=== PATIENT | female | born 1990 | race African-American/Black ===

== ENCOUNTER 2017-08-28 08:35 | Emergency (ER) | payer OTHER ==
[~2017-08-28] VITALS: Ht 160 cm; Wt 140.0 kg
[~2017-08-28 08:35] MED LIST: PERC5TAB12 PO; RANI150 PO
[2017-08-28 08:38] VITALS: BP 129/77; PULSE 88; RESP 22; TEMP 98.2; O2SAT 100
[2017-08-28] MEDS ORDERED: VENTAER INH (08:50)
[2017-08-28] MEDS ORDERED: FLUT1INH3 INH (08:50)
[2017-08-28] MEDS ORDERED: SERT25TA83 PO (08:50)
[2017-08-28] MEDS ORDERED: HYDR25TA5 PO (08:50)
[2017-08-28] MEDS ORDERED: MONT10TA4 PO (08:50)
[2017-08-28 08:52] VITALS: BP_SYST 130; BP_DIAS 80; BP_DIAS 88; PULSE 85; PULSE 89; RESP 26; O2SAT 100
[2017-08-28] MEDS ORDERED: KETOROLAC TROMETHAMINE 30 MG/ML (IVP) VIAL IV PUSH ONE (09:00)
[2017-08-28] MEDS ORDERED: SODIUM CHLORID 0.9% 500 ML INJ 500 ML IV ONE (09:00)
--- NOTE | 2017-08-28 09:00 | PD ---
HPI Chief Complaint: Chest Pain Time Seen by Provider: 08:46 Travel History International Travel<30 days: No Contact w/Intl Traveler<30days: No Traveled to known affect area: No History of Present Illness HPI The patient complains of sharp chest pain over left pectoralis that does not radiate with [acute onset since this morning when she was awakened by it] onset [3 hours] prior to arrival. It is not accompanied by [fever cough, cough, abdominal pain, back pain, nausea, vomiting, diarrhea-] . There is been no [alleviating factors-] . The pain has been [aggravated by movement and deep breath-] . There have been [-no] similar episodes in the past. Allergies: NKDA Past medical history: Significant for hypertension Past surgical history: Denies PFSH Past Medical History Asthma: Yes Depression: Yes Cardiovascular Problems: Yes Diminished Hearing: No Gastrointestinal Disorders: Yes (IBS) Hypertension: Yes Immunizations Current: Yes Tetanus Vaccination: Unknown Influenza Vaccination: No ?: Not LMP: 07/30/17 : 0 Para: 0 Miscarriage: 0 : 0 Past Surgical History Surgical History: No Previous Surgery Social History Alcohol Use: Yes (WEEKLY) Tobacco Use: No Substance Use: No Allergies-Medications (Allergen,Severity, Reaction): Coded Allergies: No Known Allergies (Unverified Adverse Reaction, Unknown, 08/28/17) Reported Meds & Prescriptions Reported Meds & Active Scripts Active Reported Ventolin Hfa 18 GM Inh (Albuterol Sulfate) 90 Mcg/Act Aer 2 Puff INH Q6H PRN Arnuity Ellipta (Fluticasone Furoate (Inhalatio) 100 Mcg Inh 1 Puff INH DAILY Montelukast (Montelukast Sodium) 10 Mg Tab 10 Mg PO HS Sertraline (Sertraline HCl) 25 Mg Tab 25 Mg PO DAILY Hydrochlorothiazide 25 Mg Tab 25 Mg PO DAILY Review of Systems Except as stated in HPI: all other systems reviewed are Neg General / Constitutional: No: Fever Eyes: No: Visual changes HENT: No: Headaches Cardiovascular: Positive: Chest Pain or Discomfort Respiratory: No: Shortness of Breath Gastrointestinal: No: Abdominal Pain Genitourinary: No: Dysuria Musculoskeletal: No: Pain Skin: No Rash Neurologic: No: Weakness Psychiatric: No: Depression Endocrine: No: Polydipsia Hematologic/Lymphatic: No: Easy Bruising Physical Exam Narrative GENERAL: SKIN: Warm and dry. HEAD: Atraumatic. Normocephalic. EYES: Pupils equal and round. No scleral icterus. No injection or drainage. ENT: No nasal bleeding or discharge. Mucous membranes pink and moist. NECK: Trachea midline. No JVD. CARDIOVASCULAR: Regular rate and rhythm. RESPIRATORY: No accessory muscle use. Clear to auscultation. Breath sounds equal bilaterally. but reproducible chest wall pain over left pectoralis GASTROINTESTINAL: Abdomen soft, non-tender, nondistended. MUSCULOSKELETAL: Extremities without clubbing, cyanosis, or edema. No obvious deformities. NEUROLOGICAL: Awake and alert. No obvious cranial nerve deficits. Motor grossly within normal limits. Five out of 5 muscle strength in the arms and legs. Normal speech. PSYCHIATRIC: Appropriate mood and affect; insight and judgment normal. Data Data Last Documented VS Vital Signs Date Time Temp Pulse Resp B/P (MAP) Pulse Ox O2 Delivery O2 Flow Rate FiO2 08/28/17 10:41 83 23 141/92 (108) 100 Nasal Cannula 2.00 08/28/17 08:38 98.2 Orders Orders Electrocardiogram (08/28/17 09:00) Complete Blood Count With Diff (08/28/17:00) Comprehensive Metabolic Panel (08/28/17:00) Prothrombin Time / Inr (Pt) (08/28/17:00) Act Partial Throm Time (Ptt) (08/28/17:00) Troponin I (08/28/17:00) Lipase (08/28/17 09:00) Chest, Single Ap (08/28/17:00) Ecg Monitoring (08/28/17:00) Bilateral Bp Monitoring (08/28/17:00) Iv Access Insert/Monitor (08/28/17:00) Oximetry (08/28/17 09:00) Oxygen Administration (08/28/17 09:00) Sodium Chlorid 0.9% 500 Ml Inj (Ns 500 M (08/28/17 09:00) Ct Pulmonary Angiogram (08/28/17 09:00) Ketorolac Inj (Toradol Inj) (08/28/17 09:00) Ed Urine Pregnancytest Poc (08/28/17 09:00) Drug Screen, Random Urine (08/28/17 09:00) Iohexol 350 Inj (Omnipaque 350 Inj) (08/28/17 12:29) Labs Laboratory Tests Test 08/28/17 09:05 08/28/17 10:30 08/28/17 10:40 White Blood Count 6.6 TH/MM3 Red Blood Count 5.41 MIL/MM3 Hemoglobin 12.1 GM/DL Hematocrit 37.5 % Mean Corpuscular Volume 69.4 FL Mean Corpuscular Hemoglobin 22.3 PG Mean Corpuscular Hemoglobin Concent 32.2 % Red Cell Distribution Width 14.3 % Platelet Count 270 TH/MM3 Mean Platelet Volume 8.8 FL Neutrophils (%) (Auto) 43.9 % Lymphocytes (%) (Auto) 45.2 % Monocytes (%) (Auto) 8.1 % Eosinophils (%) (Auto) 2.3 % Basophils (%) (Auto) 0.5 % Neutrophils # (Auto) 2.9 TH/MM3 Lymphocytes # (Auto) 3.0 TH/MM3 Monocytes # (Auto) 0.5 TH/MM3 Eosinophils # (Auto) 0.2 TH/MM3 Basophils # (Auto) 0.0 TH/MM3 CBC Comment DIFF FINAL Differential Comment Prothrombin Time 10.1 SEC Prothromb Time International Ratio 1.0 RATIO Activated Partial Thromboplast Time 25.0 SEC Blood Urea Nitrogen 13 MG/DL Creatinine 0.97 MG/DL Random Glucose 99 MG/DL Total Protein 8.4 GM/DL Albumin 3.9 GM/DL Calcium Level 9.3 MG/DL Alkaline Phosphatase 50 U/L Aspartate Amino Transf (AST/SGOT) 16 U/L Alanine Aminotransferase (ALT/SGPT) 20 U/L Total Bilirubin 0.3 MG/DL Sodium Level 137 MEQ/L Potassium Level 4.1 MEQ/L Chloride Level 101 MEQ/L Carbon Dioxide Level 27.9 MEQ/L Anion Gap 8 MEQ/L Estimat Glomerular Filtration Rate 85 ML/MIN Troponin I LESS THAN 0.02 NG/ML Lipase 105 U/L Urine Opiates Screen NEG Urine Barbiturates Screen NEG Urine Amphetamines Screen NEG Urine Benzodiazepines Screen NEG Urine Cocaine Screen NEG Urine Cannabinoids Screen NEG MDM Medical Decision Making Medical Screen Exam Complete: Yes Emergency Medical Condition: Yes Medical Record Reviewed: Yes Interpretation(s) EKG normal sinus rhythm 98 normal intervals no STEMI type of pattern. Pulse ox: Excellent Pleth wave, 96% on room air which is normal Differential Diagnosis Chest wall pain versus pneumonia versus pneumothorax versus pulmonary embolus Narrative Course NEG TOX SCREEN, NEG TROPONIN, NORMAL ELECTROLYTES, NORMAL LIVER/KIDNEY FUNCTIONS. PATIENT HAD A CT THAT READ FOLLOWS BY RADIOLOGIST: CONCLUSION: 1. There is poor opacification of the pulmonary arteries. Questionable filling defects are seen bilaterally in the central pulmonary arteries but it is difficult to be confident of these are true PEs. Consider either attempt at reinjection of contrast to obtain a better study or consider correlation with VQ scan. 2. Soft tissue mass anterior mediastinum measuring up to 2 cm. It is not optimally visualize given the artifact from the adjacent contrast in the left brachiocephalic vein. This could represent residual thymic tissue or an anterior mediastinal mass such as thymoma or lymphadenopathy. Suggest correlating with any prior imaging studies. If none are available suggest followup on an outpatient elective basis with chest CT with IV contrast to assess for change. SINCE PATIENT CANNOT BE GIVEN CONTRAST WITHIN 24 HOURS WILL HAVE TO REPEAT CT CHEST OUTPATIENT Diagnosis Primary Impression: CHEST PAIN WITH POSSIBLE MEDIASTINAL MASS Patient Instructions: Chest Pain (ED), General Instructions Additional Instructions: UNFORTUNATELY YOUR CAT SCAN OF CHEST WAS NOT OF SUFFICIENT QUALITY. PATIENT WILL BE REFERRED TO OUTPATIENT CT WITH IV TO FURTHER EVALUATE MEDIASTINAL MASS AND OR IF FILLING DEFECTS ARE REAL VERSUS SUBSTANDARD STUDY. Scripts Tramadol (Ultram) 50 Mg Tab 50 MG PO Q4H Y for PAIN, #14 TAB 0 Refills Prov: Jagdish Freeman MD 08/28/17 Disposition: 01 DISCHARGE HOME Condition: Stable Jagdish Freeman MD Aug 28, 2017 09:00
[2017-08-28 09:22] VITALS: BP 127/73; PULSE 84; RESP 20; O2SAT 100
--- NOTE | 2017-08-28 09:30 | RADRPT ---
EXAM DATE/TIME: 08/28/2017 09:11 [facility] COMPARISON: No previous studies available for comparison. INDICATIONS : Chest pain. MEDICAL HISTORY : high blood pressure. SURGICAL HISTORY : None. ENCOUNTER: Initial ACUITY: 1 day PAIN SCORE: 10/10 LOCATION: Bilateral chest FINDINGS: A single view of the chest demonstrates the lungs to be symmetrically aerated without evidence of mas s, infiltrate or effusion. The cardiomediastinal contours are unremarkable. Osseous structures are intact. CONCLUSION: 1. No acute cardiopulmonary disease. Samir Garvey MD on August 28, 2017 at 9:27 Board Certified Radiologist. This report was verified electronically.
[2017-08-28 10:03] LABS: AUTOMATED NEUTROPHIL # 2.9 TH/MM3 (1.8-7.7); BASOPHIL % 0.5 % (0.0-2.0); EOSINOPHIL # 0.2 TH/MM3 (0-0.4); EOSINOPHIL % 2.3 % (0.0-4.0); HEMATOCRIT 37.5 % (35.0-46.0); HEMOGLOBIN 12.1 GM/DL (11.6-15.3); LYMPH % 45.2 % (9.0-44.0); MEAN CELL VOLUME 69.4 FL (80.0-100.0); MEAN CORPUSCULAR HEMOGLOBIN 22.3 PG (27.0-34.0); MEAN CORPUSCULAR HGB CONC 32.2 % (32.0-36.0); MEAN PLATELET VOLUME 8.8 FL (7.0-11.0); MONO % 8.1 % (0.0-8.0); MONOCYTE # 0.5 TH/MM3 (0-0.9); NEUT % 43.9 % (16.0-70.0); PLATELET COUNT 270 TH/MM3 (150-450); RED BLOOD COUNT 5.41 MIL/MM3 (4.00-5.30); RED CELL DISTRIBUTION WIDTH 14.3 % (11.6-17.2); WHITE BLOOD COUNT 6.6 TH/MM3 (4.0-11.0)
[2017-08-28 10:41] VITALS: BP 141/92; PULSE 83; RESP 23; O2SAT 100
[2017-08-28 11:11] LABS: PROTHROMBIN TIME - PATIENT 10.1 SEC (9.8-11.6)
[2017-08-28 11:16] LABS: ALBUMIN 3.9 GM/DL (3.4-5.0); AST (GOT) 16 U/L (15-37); BICARBONATE 27.9 MEQ/L (21.0-32.0); BLOOD UREA NITROGEN 13 MG/DL (7-18); CALCIUM 9.3 MG/DL (8.5-10.1); CHLORIDE 101 MEQ/L (98-107); CREATININE 0.97 MG/DL (0.50-1.00); GLOMERULAR FILTRATION RATE 85 ML/MIN (>89); GLUCOSE,RANDOM 99 MG/DL (74-106); SODIUM (NA) 137 MEQ/L (136-145)
[2017-08-28 11:23] LABS: ALKALINE PHOSPHATASE 50 U/L (45-117); ALT (GPT) 20 U/L (10-53); TOTAL BILIRUBIN ADULT 0.3 MG/DL (0.2-1.0); TOTAL PROTEIN 8.4 GM/DL (6.4-8.2); TROPONIN I LESS THAN 0.02 NG/ML (0.02-0.05)
[2017-08-28 12:00] VITALS: BP 132/68; PULSE 68; RESP 25; O2SAT 100
[2017-08-28] MEDS ORDERED: IOHEXOL 350 MG/ML 10 ML VIAL (for RAD DIAG) IVCONTRAST ONE (12:29)
--- NOTE | 2017-08-28 12:51 | RADRPT ---
EXAM DATE/TIME: 08/28/2017 12:26 [facility] COMPARISON: No previous studies available for comparison. INDICATIONS : SOB, Left chest pain, Evaluate for PE. IV CONTRAST: 84 cc Omnipaque 350 (iohexol) IV RADIATION DOSE: 22.90 CTDIvol (mGy) MEDICAL HISTORY : Hypertension. Asthma SURGICAL HISTORY : None listed. ENCOUNTER: Initial ACUITY: 1 day PAIN SCALE: 7/10 LOCATION: Left chest TECHNIQUE: Volumetric scanning of the chest was performed using a pulmonary embolism protocol MIP images were re constructed. Using automated exposure control and adjustment of the mA and/or kV according to patien t size, radiation dose was kept as low as reasonably achievable to obtain optimal diagnostic quality images. DICOM format image data is available electronically for review and comparison. Follow-up recommendations for detected pulmonary nodules are based at a minimum on nodule size and pa tient risk factors according to Fleischner Society Guidelines. FINDINGS: PULMONARY ARTERIES: There is poor opacification of the pulmonary arteries. There are questionable filling defects in the central right lower lobe lobar pulmonary artery and left lower lobe lobar pulmonary artery. LUNGS: There is no consolidation or pneumothorax . No concerning pulmonary nodule is visualized. PLEURAE: There is no pleural thickening or pleural effusion. MEDIASTINUM: Heart and great vessels demonstrate no abnormality. There is soft tissue density lesion in the anteri or mediastinum measuring 2.0 x 1.6 cm. It is not optimally visualized due to artifact from the contra st in the adjacent left brachiocephalic vein. MUSCULOSKELETAL: Within normal limits for patient age. MISCELLANEOUS: The visualized upper abdominal organs demonstrate no acute abnormality. CONCLUSION: 1. There is poor opacification of the pulmonary arteries. Questionable filling defects are seen bilat erally in the central pulmonary arteries but it is difficult to be confident of these are true PEs. C onsider either attempt at reinjection of contrast to obtain a better study or consider correlation wi th VQ scan. 2. Soft tissue mass anterior mediastinum measuring up to 2 cm. It is not optimally visualize given th e artifact from the adjacent contrast in the left brachiocephalic vein. This could represent residual thymic tissue or an anterior mediastinal mass such as thymoma or lymphadenopathy. Suggest correlatin g with any prior imaging studies. If none are available suggest followup on an outpatient elective ba sis with chest CT with IV contrast to assess for change. Jacky Kinsey MD on August 28, 2017 at 12:43 Board Certified Radiologist. This report was verified electronically.
[2017-08-28] MEDS ORDERED: TRAM50 PO (13:17)
[2017-08-28 14:19] VITALS: BP 131/76
--- NOTE | 2017-08-28 19:05 | EKG ---
Date Performed: 08/28/2017 Time Performed: 08:48:00 PTAGE: 26 years EKG: Sinus rhythm NORMAL ECG INTERPRETATION BASED ON A DEFAULT AGE OF 41 YEARS NO PREVIOUS TRACING DOCTOR: Cash Covington Interpretating Date/Time 08/28/2017 19:03:24
== END 2017-08-28 14:22 | disposition home or self-care (01) ==
LOC: NEPC 08:35
DX: R07.9 Chest pain, unspecified (principal); J45.909 Unspecified asthma, uncomplicated; F32.9 Major depressive disorder, single episode, unspecified; I10 Essential (primary) hypertension; K58.9 Irritable bowel syndrome, unspecified
CPT/HCPCS: 71045; 71275; 80053; 80307; 83690; 84484; 84703; 85025; 85610; 85730; 93005; 99285; J1885; J7040; Q9967